=== PATIENT | male | born 1950 | race Caucasian/White ===

== ENCOUNTER → 2019-02-14 | Outpatient (CLI) | payer MEDICARE ==
--- NOTE | 2019-02-14 14:54 | RAD ---
EXAM: Abdomen sonogram. HISTORY: Abnormal liver enzymes laboratory values. TECHNIQUE: Sonographic imaging of the abdomen was performed. COMPARISON: None. FINDINGS: The liver is upper normal in size. No focal hepatic lesion is seen. The gallbladder is unremarkable. The common bile duct is normal caliber. The aorta, inferior vena cava and right kidney are unremarkable. The pancreas is partially obscured due to bowel gas. IMPRESSION: Upper normal liver size. No acute sonographic finding. Electronically signed by: Anitha Cerda MD (02/14/2019 2:51 PM) [id number]
== END | disposition home or self-care (01) ==
LOC: US 08:33
PROVIDERS: ATTEND Internal Medicine Gastroenterology
DX: R94.5 Abnormal results of liver function studies (principal)
CPT/HCPCS: 76705